=== PATIENT | female | born 1945 | race Caucasian/White ===

== ENCOUNTER → 2022-12-14 | Outpatient (CLI) | payer MEDICARE | LOC: M PLAIMG 08:42 | PROVIDERS: ATTEND Nurse Practitioner Family | DX: R91.8 Other nonspecific abnormal finding of lung field (principal); K43.9 Ventral hernia without obstruction or gangrene; M48.54XD Collapsed vertebra, not elsewhere classified, thoracic region, subsequent encounter for fracture with routine healing ==

== ENCOUNTER → 2023-01-18 | Outpatient (CLI) | payer MEDICARE | LOC: M CARPUL 08:58 | PROVIDERS: ATTEND Nurse Practitioner Family | DX: R06.02 Shortness of breath (principal) ==

== ENCOUNTER → 2023-03-16 | Outpatient (CLI) | payer OTHER | LOC: M PLAIMG 09:51 | PROVIDERS: ATTEND Nurse Practitioner Family | DX: J45.30 Mild persistent asthma, uncomplicated (principal); R91.8 Other nonspecific abnormal finding of lung field; J98.11 Atelectasis; I25.10 Atherosclerotic heart disease of native coronary artery without angina pectoris; K43.9 Ventral hernia without obstruction or gangrene ==

== ENCOUNTER → 2023-04-30 | Outpatient (CLI) | payer OTHER | LOC: M PLARAD 07:33 | PROVIDERS: ATTEND Nurse Practitioner Family | DX: R91.8 Other nonspecific abnormal finding of lung field (principal); K42.9 Umbilical hernia without obstruction or gangrene; K57.90 Diverticulosis of intestine, part unspecified, without perforation or abscess without bleeding | CPT/HCPCS: 78815; A9552 ==

== ENCOUNTER → 2024-05-02 | Outpatient (CLI) | payer MEDICARE | LOC: M PLAIMG 12:39 | PROVIDERS: ATTEND Physician Assistant | DX: R91.8 Other nonspecific abnormal finding of lung field (principal) ==